=== PATIENT | male | born 1970 | race Caucasian/White ===

== ENCOUNTER 2016-07-31 11:09 | Inpatient (IN) | payer MEDICAID ==
[~2016-07-31] VITALS: Ht 152.4 cm; Wt 68.0 kg
[2016-07-31] MEDS ORDERED: MEGL PO (11:22)
[2016-07-31] MEDS ORDERED: TEGRETOL200 MG PO (11:23)
[2016-07-31] MEDS ORDERED: THERA-M W/MINER1 TAB PO (11:23)
[2016-07-31] MEDS ORDERED: CLONAZEPAM2 MG PO ×2 (11:24)
[2016-07-31] MEDS ORDERED: DULCOLAX10 M1 PR (11:25)
[2016-07-31] MEDS ORDERED: Q-PAP325 MG PO (11:26)
[2016-07-31] MEDS ORDERED: ROBDML PO (11:26)
[2016-07-31] MEDS ORDERED: DIVALPROEX SOD500 M3 PO (11:27)
[2016-07-31] MEDS ORDERED: KEPPRA500 MG PO (11:27)
[2016-07-31] MEDS ORDERED: MIRALAX17 GM PO (11:28)
[2016-07-31 12:32] LABS: BASOPHIL % 0.4 % (0-2); PLATELET COUNT 166 x10^3mcL (130-400); RED CELL DISTRIBUTION WIDTH 13.9 % (11.5-14.5)
[2016-07-31 12:51] LABS: ALKALINE PHOSPHATASE 33 U/L (46-116); ALT/SGPT 10 U/L (16-63); AST/SGOT 8 U/L (15-37); BILIRUBIN TOTAL 0.1 mg/dL (0.20-1.00); CALCIUM 6.7 mg/dL (8.5-10.1); CARBON DIOXIDE 23.6 mmol/L (21-32); CHLORIDE SERUM 115 mmol/L (98-107); CREATININE SERUM 0.4 mg/dL (0.7-1.3); GFR1 > 60 mL/min; GLUCOSE SERUM 98 mg/dL (74-106); SODIUM SERUM 147 mmol/L (136-145)
[2016-07-31 12:52] LABS: ALBUMIN 2.2 g/dL (3.4-5.0); TOTAL PROTEIN, SERUM 4.7 g/dL (6.4-8.2)
[2016-07-31 12:53] LABS: POTASSIUM SERUM 2.7 mmol/L (3.5-5.1)
[2016-07-31 15:51] LABS: MAGNESIUM 1.5 mg/dL (1.8-2.4); PHOSPHOROUS 2.4 mg/dL (2.5-4.9)
[2016-07-31 15:56] LABS: CARBON DIOXIDE 28.4 mmol/L (21-32); CHLORIDE SERUM 106 mmol/L (98-107); CREATININE SERUM 0.4 mg/dL (0.7-1.3); GFR1 > 60 mL/min; GLUCOSE SERUM 96 mg/dL (74-106); POTASSIUM SERUM 3.9 mmol/L (3.5-5.1); SODIUM SERUM 143 mmol/L (136-145)
[2016-07-31 16:06] VITALS: BP 142/74
[2016-07-31 16:09] LABS: T3 TOTAL 0.82 ng/mL
[2016-07-31 16:28] LABS: FREE T4 0.61 ng/dL (0.76-1.46); FREE THYROXINE INDEX 1.5 ug/dL (1.4-4.5); T4(THYROXINE) 4.9 ug/dL (4.7-13.3)
[2016-07-31 20:49] VITALS: BP 106/67
[2016-07-31 21:54] VITALS: Ht 152.4 cm; Wt 68.0 kg
[2016-07-31 22:30] LABS: microscopic required? NO
[2016-07-31 22:55] LABS: urine erythrocyte NEGATIVE (NEGATIVE)
[2016-07-31 23:07] LABS: AMPHETAMINE QUAL UR NONE DETECTED (NEG <=1000)
[2016-08-01 05:45] VITALS: BP 106/61
[2016-08-01 06:56] LABS: BASOPHIL % 0.5 % (0-2); PLATELET COUNT 240 x10^3mcL (130-400)
[2016-08-01 07:07] LABS: CARBON DIOXIDE 25.5 mmol/L (21-32); CHLORIDE SERUM 105 mmol/L (98-107); CREATININE SERUM 0.7 mg/dL (0.7-1.3); GFR1 > 60 mL/min; GLUCOSE SERUM 111 mg/dL (74-106); POTASSIUM SERUM 3.8 mmol/L (3.5-5.1); SODIUM SERUM 143 mmol/L (136-145)
[2016-08-01 07:11] LABS: MAGNESIUM 2.3 mg/dL (1.8-2.4); PHOSPHOROUS 2.4 mg/dL (2.5-4.9)
[2016-08-01 09:47] VITALS: BP 111/61
[2016-08-01 13:53] VITALS: BP 118/55
[2016-08-01 17:27] VITALS: BP 99/52
[2016-08-01 20:02] VITALS: BP 114/72
[2016-08-01 21:37] VITALS: BP 98/52
[2016-08-02] VITALS (7 sets, daily range): BP systolic 90–108; BP diastolic 45–73
[2016-08-02 06:21] LABS: BASOPHIL % 0.6 % (0-2); PLATELET COUNT 183 x10^3mcL (130-400); RED CELL DISTRIBUTION WIDTH 13.8 % (11.5-14.5)
[2016-08-02 06:50] LABS: CHLORIDE SERUM 107 mmol/L (98-107); CREATININE SERUM 0.4 mg/dL (0.7-1.3); GFR1 > 60 mL/min; GLUCOSE SERUM 94 mg/dL (74-106)
[2016-08-02 07:10] LABS: CALCIUM 8.6 mg/dL (8.5-10.1); CARBON DIOXIDE 23.4 mmol/L (21-32); PHOSPHOROUS 3.4 mg/dL (2.5-4.9); SODIUM SERUM 139 mmol/L (136-145)
[2016-08-03 06:21] VITALS: BP 104/43
[2016-08-03 06:29] LABS: BASOPHIL % 0.3 % (0-2); PLATELET COUNT 195 x10^3mcL (130-400); RED CELL DISTRIBUTION WIDTH 14.2 % (11.5-14.5)
[2016-08-03 06:39] LABS: CALCIUM 8.7 mg/dL (8.5-10.1); CARBON DIOXIDE 27.7 mmol/L (21-32); CHLORIDE SERUM 107 mmol/L (98-107); CREATININE SERUM 0.6 mg/dL (0.7-1.3); GFR1 > 60 mL/min; GLUCOSE SERUM 80 mg/dL (74-106); PHOSPHOROUS 3.9 mg/dL (2.5-4.9); POTASSIUM SERUM 3.8 mmol/L (3.5-5.1); SODIUM SERUM 141 mmol/L (136-145)
[2016-08-03 08:48] VITALS: BP 119/74
[2016-08-03 11:14] VITALS: BP 106/73
[2016-08-03] MEDS ORDERED: LEVAQUIN750 MG PO (12:37)
[2016-08-03] MEDS ORDERED: CLEOCIN HCL300 MG PO (12:37)
[2016-08-03] MEDS ORDERED: LAC PO (12:38)
[2016-08-03 13:32] VITALS: BP 95/63
[2016-08-03 14:14] VITALS: BP 102/65
[2016-08-03 14:19] VITALS: BP 102/65
[2016-08-05 07:27] LABS: CK-BB 0 % (0); CK-MB 0 % (0-3); CK-MM 100 % (97-100); MACRO TYPE 1 0 % (Not Observed); MACRO TYPE 2 0 % (Not Observed)
== END 2016-08-03 15:18 | DRG 720 ==
LOC: ED 11:09 → DU 14:30 → MU 08-02 09:27 → DU 08-02 13:06
PROVIDERS: Emergency Medicine; Family Medicine; ADMIT Family Medicine
DX: A41.9 Sepsis, unspecified organism (principal); N17.0 Acute kidney failure with tubular necrosis; J69.0 Pneumonitis due to inhalation of food and vomit; G93.41 Metabolic encephalopathy; E43 Unspecified severe protein-calorie malnutrition; K72.90 Hepatic failure, unspecified without coma; E87.8 Other disorders of electrolyte and fluid balance, not elsewhere classified; B35.3 Tinea pedis; G40.909 Epilepsy, unspecified, not intractable, without status epilepticus; K59.09 Other constipation; E87.6 Hypokalemia; R65.20 Severe sepsis without septic shock; E87.0 Hyperosmolality and hypernatremia; E83.51 Hypocalcemia; D64.9 Anemia, unspecified; E02 Subclinical iodine-deficiency hypothyroidism; E78.5 Hyperlipidemia, unspecified; P11 Other birth injuries to central nervous system; R62.50 Unspecified lack of expected normal physiological development in childhood; E83.39 Other disorders of phosphorus metabolism; Z68.29 Body mass index [BMI] 29.0-29.9, adult
CPT/HCPCS: 80307; 82962; 83880; 84439; 85378; G0480; J1644; J2060; J2543; J3475; J3480; J3490; J7030; J7620; Q0092

== ENCOUNTER 2016-08-03 21:39 | Emergency (ER) | payer MEDICAID ==
[~2016-08-03 21:39] MED LIST: CLEOCIN HCL300 MG PO; CLONAZEPAM2 MG PO; DIVALPROEX SOD500 M3 PO; DULCOLAX10 M1 PR; KEPPRA500 MG PO; LAC PO; LEVAQUIN750 MG PO; MEGL PO; MIRALAX17 GM PO; Q-PAP325 MG PO; ROBDML PO; TEGRETOL200 MG PO; THERA-M W/MINER1 TAB PO
[2016-08-04 00:07] LABS: BASOPHIL % 0.3 % (0-2); PLATELET COUNT 205 x10^3mcL (130-400); RED CELL DISTRIBUTION WIDTH 14.2 % (11.5-14.5)
[2016-08-04 00:35] LABS: CALCIUM 8.9 mg/dL (8.5-10.1); CARBON DIOXIDE 31.1 mmol/L (21-32); CHLORIDE SERUM 104 mmol/L (98-107); CREATININE SERUM 0.7 mg/dL (0.7-1.3); GFR1 > 60 mL/min; GLUCOSE SERUM 105 mg/dL (74-106); POTASSIUM SERUM 3.8 mmol/L (3.5-5.1); SODIUM SERUM 139 mmol/L (136-145)
[2016-08-04 00:48] LABS: ALKALINE PHOSPHATASE 47 U/L (46-116); ALT/SGPT 16 U/L (16-63); AST/SGOT 13 U/L (15-37); BILIRUBIN TOTAL 0.17 mg/dL (0.20-1.00); MAGNESIUM 2.2 mg/dL (1.8-2.4); TOTAL PROTEIN, SERUM 6.8 g/dL (6.4-8.2)
[2016-08-04 00:49] LABS: ALBUMIN 2.8 g/dL (3.4-5.0)
[2016-08-04 10:18] VITALS: BP 92/53
== END 2016-08-04 10:18 | disposition home or self-care (01) ==
LOC: ED 21:39
PROVIDERS: Emergency Medicine
DX: R56.9 Unspecified convulsions (principal); R62.50 Unspecified lack of expected normal physiological development in childhood; Z79.899 Other long term (current) drug therapy
CPT/HCPCS: J2060; Q0092